=== PATIENT | female | born 1995 | race Caucasian/White ===

== ENCOUNTER → 2017-11-28 | Outpatient (REF) ==
[~2017-11-28] MED LIST: BCP
[2017-11-28 10:57] LABS: LDL CHOLESTEROL 99 mg/dl
== END ==
DX: Z02.9 Encounter for administrative examinations, unspecified (principal)

== ENCOUNTER → 2018-10-13 | Outpatient (CLI) | payer OTHER ==
[~2018-10-13] MED LIST changes: +PREN-127 PO
[2018-10-13 09:40] LABS: PLATELET COUNT, AUTOMATED 179 K/uL (150-450)
== END ==
LOC: LAB 08:19
PROVIDERS: ATTEND Student in an Organized Health Care Education/Training Program
DX: Z34.90 Encounter for supervision of normal pregnancy, unspecified, unspecified trimester (principal); R82.79 Other abnormal findings on microbiological examination of urine
CPT/HCPCS: 36415; 81001; 85025; 86592; 86703; 86762; 86850; 86900; 86901; 87088; 87340

== ENCOUNTER → 2018-10-31 | Outpatient (CLI) | payer OTHER | LOC: LAB 08:09 | PROVIDERS: ATTEND Student in an Organized Health Care Education/Training Program | DX: Z11.3 Encounter for screening for infections with a predominantly sexual mode of transmission (principal); Z34.01 Encounter for supervision of normal first pregnancy, first trimester | CPT/HCPCS: 87491; 87591 ==

== ENCOUNTER 2018-12-20 03:52 | Observation (INO) | payer OTHER ==
[~2018-12-20] VITALS: Ht 170.2 cm; Wt 88.0 kg
[~2018-12-20 03:52] MED LIST changes: +ONDA-2 PO
--- NOTE | 2018-12-20 03:55 | ER Report ---
History and Physical Time Seen By MD: 03:54 (PANKAJ PABLO DO) HPI/ROS CHIEF COMPLAINT: Vomiting HISTORY OF PRESENT ILLNESS: 23-year-old female at 16 weeks, followed by Dr. Holt. Patient was seen 2 weeks ago. She's been vomiting for 2 days. Patient's been trying Zofran without effect. She notes no vaginal bleeding or s potting. Patient denies fever, chills or concurrent illness symptoms. REVIEW OF SYSTEMS: Respiratory: No cough, no dyspnea. Cardiovascular: No chest pain, no palpitations. Gastrointestinal: As above Musculoskeletal: No back pain. (PANKAJ PABLO DO) Allergies: Coded Allergies: No Known Drug Allergies (Unverified , 12/20/18) verified 12/28/17 Home Meds Active Scripts Ondansetron 4 Mg Odt (ONDANSETRON 4 MG ODT) 4 Mg Tab.rapdis, 4 MG PO Q6H PRN for NAUSEA/VOMITING, #15 TAB Prov:PANKAJ PABLO DO 12/20/18 Ondansetron Hcl (ONDANSETRON HCL) 4 Mg Tablet, 4 MG PO Q4H PRN for NAUSEA, #30 TAB 2 Refills Prov:ISELA HOLT DO 12/18/18 Reported Medications Vits W-Ca,Fe,Fa(<1MG) ( VITAMINS) 1 Each Tablet, 1 EACH PO DAILY, TAB 09/18/18 Past Medical/Surgical History Past Medical History Neurologic: Reports hx of: migraine (last was > 5 years ago) Past Surgical History HEENT: Reports hx of: dental surgery (WISDOM TEETH) tonsillectomy (1999) (PANKAJ PABLO DO) Reviewed Nurses Notes: Yes Old Medical Records Reviewed: Yes (PANKAJ PABLO DO) Hx Smoking: No Smoking Status: Never Smoker Hx Substance Use Disorder: No Hx Alcohol Use: No (PANKAJ PABLO DO) Constitutional Vital Sign - Last 24 Hours 12/20/18 12/20/18 12/20/18 12/20/18 03:59 04:00 04:22 04:30 Temp 98.5 Pulse 101 81 Resp 14 B/P (MAP) 131/79 (96) 131/79 106/69 (81) Pulse Ox 93 94 O2 Delivery Room Air 12/20/18 12/20/18 12/20/18 12/20/18 04:37 04:52 04:57 05:00 Pulse 81 80 78 B/P (MAP) 96/70 (79) Pulse Ox 96 95 12/20/18 12/20/18 12/20/18 12/20/18 05:12 05:27 05:30 05:42 Pulse 96 87 95 B/P (MAP) 108/61 (77) Pulse Ox 96 94 96 12/20/18 12/20/18 12/20/18 12/20/18 05:47 06:00 06:02 06:17 Pulse 110 84 75 B/P (MAP) 109/61 (77) Pulse Ox 94 98 12/20/18 12/20/18 12/20/18 12/20/18 06:30 06:32 06:47 06:52 Pulse 93 103 95 B/P (MAP) 114/71 (85) Pulse Ox 95 95 91 12/20/18 12/20/18 12/20/18 12/20/18 07:00 07:22 07:30 07:40 Pulse 84 78 B/P (MAP) 121/72 (88) 109/71 (84) Pulse Ox 97 97 12/20/18 12/20/18 12/20/18 07:45 08:00 08:15 Pulse 87 86 B/P (MAP) 114/69 (84) Pulse Ox 97 Intake and Output 12/19/18 12/19/18 12/20/18 15:00 23:00 07:00 Intake Total 2000 ml Balance 2000 ml (YASH MANCILLA MD) Physical Exam General Appearance: The patient is alert, has no immediate need for airway protection and no current signs of toxicity. Vital signs stable, afebrile, pulse ox normal, skin warm, dry, pink Eyes: Pupils equal and round no injection. Respiratory: Chest is non tender, lungs are clear to auscultation. Cardiac: regular rate and rhythm Gastrointestinal: Abdomen is soft and non tender, no masses, bowel sounds normal. Musculoskeletal: Neck: Neck is supple and non tender. Extremities have full range of motion and are non tender. Skin: No rashes or lesions. DIFFERENTIAL DIAGNOSIS: After history and physical exam differential diagnosis was considered for hyperemesis gravidarum, vomiting, food poisoning, gastroenteritis, viral syndrome (PANKAJ PABLO DO) Medical Decision Making Data Points Result Diagram: 12/20/18 0413 12/20/18 0413 Laboratory Hematology Test 12/20/18 04:00 12/20/18 04:13 Urine Color Yellow Urine Clarity Slightly-cloudy Urine pH 5.0 pH (4.8-9.5) Urine Specific [place] 1.030 Urine Protein Negative mg/dL (NEGATIVE) Urine Glucose (UA) Negative mg/dL (NEGATIVE) Urine Ketones Trace mg/dL (NEGATIVE) Urine Blood Negative (NEGATIVE) Urine Nitrite Negative (NEGATIVE) Urine Bilirubin Negative (NEGATIVE) Urine Urobilinogen 2.0 mg/dL (0.2-1.9) Urine Leukocyte Esterase Negative (NEGATIVE) Urine RBC 1 /HPF (0-2/HPF) Urine WBC 5 /HPF (0-5/HPF) Urine Squamous Epithelial Cells Many /LPF (</=FEW) Urine Transitional Epithelial Cells Moderate /LPF (NONE-FEW) Urine Bacteria Few /HPF (NONE-FEW) Urine Hyaline Casts Few /LPF (NONE-FEW) Urine Mucus Few /HPF (NONE-FEW) Urine HCG, Qualitative Positive (NEGATIVE) Red Blood Count 4.63 M/uL (4.17-5.56) Mean Corpuscular Volume 85.6 fL (80.0-96.0) Mean Corpuscular Hemoglobin 29.6 pg (26.0-33.0) Mean Corpuscular Hemoglobin Concent 34.6 g/dL (32.0-36.0) Red Cell Distribution Width 12.7 % (11.5-14.5) Mean Platelet Volume 8.4 fL (7.2-11.1) Neutrophils (%) (Auto) 80.3 % (39.4-72.5) Lymphocytes (%) (Auto) 10.7 % (17.6-49.6) Monocytes (%) (Auto) 8.1 % (4.1-12.4) Eosinophils (%) (Auto) 0.4 % (0.4-6.7) Basophils (%) (Auto) 0.5 % (0.3-1.4) Nucleated RBC Relative Count (auto) 0.1 /100WBC Neutrophils # (Auto) 7.0 K/uL (2.0-7.4) Lymphocytes # (Auto) 0.9 K/uL (1.3-3.6) Monocytes # (Auto) 0.7 K/uL (0.3-1.0) Eosinophils # (Auto) 0.0 K/uL (0.0-0.5) Basophils # (Auto) 0.0 K/uL (0.0-0.1) Nucleated RBC Absolute Count (auto) 0.01 K/uL Sodium Level 135 mmol/L (137-145) Potassium Level 3.3 mmol/L (3.5-5.0) Chloride Level 104 mmol/L (98-107) Carbon Dioxide Level 24 mmol/L (22-31) Blood Urea Nitrogen 8 mg/dl (7-18) Creatinine 0.60 mg/dl (0.52-1.04) Glomerular Filtration Rate Calc > 60.0 Random Glucose 101 mg/dl (75-110) Calcium Level 8.9 mg/dl (8.4-10.2) Total Bilirubin 0.2 mg/dl (0.2-1.3) Aspartate Amino Transf (AST/SGOT) 14 U/L (0-35) Alanine Aminotransferase (ALT/SGPT) 15 U/L (0-56) Alkaline Phosphatase 41 U/L (0-126) Total Protein 6.7 g/dl (6.3-8.2) Albumin 3.5 g/dl (3.5-5.0) Amylase Level 78 U/L (0-110) Lipase 139 U/L (23-300) Chemistry Test 12/20/18 04:00 12/20/18 04:13 Urine Color Yellow Urine Clarity Slightly-cloudy Urine pH 5.0 pH (4.8-9.5) Urine Specific [place] 1.030 Urine Protein Negative mg/dL (NEGATIVE) Urine Glucose (UA) Negative mg/dL (NEGATIVE) Urine Ketones Trace mg/dL (NEGATIVE) Urine Blood Negative (NEGATIVE) Urine Nitrite Negative (NEGATIVE) Urine Bilirubin Negative (NEGATIVE) Urine Urobilinogen 2.0 mg/dL (0.2-1.9) Urine Leukocyte Esterase Negative (NEGATIVE) Urine RBC 1 /HPF (0-2/HPF) Urine WBC 5 /HPF (0-5/HPF) Urine Squamous Epithelial Cells Many /LPF (</=FEW) Urine Transitional Epithelial Cells Moderate /LPF (NONE-FEW) Urine Bacteria Few /HPF (NONE-FEW) Urine Hyaline Casts Few /LPF (NONE-FEW) Urine Mucus Few /HPF (NONE-FEW) Urine HCG, Qualitative Positive (NEGATIVE) White Blood Count 8.8 k/uL (4.5-11.0) Red Blood Count 4.63 M/uL (4.17-5.56) Hemoglobin 13.7 g/dL (12.0-16.0) Hematocrit 39.6 % (34.0-47.0) Mean Corpuscular Volume 85.6 fL (80.0-96.0) Mean Corpuscular Hemoglobin 29.6 pg (26.0-33.0) Mean Corpuscular Hemoglobin Concent 34.6 g/dL (32.0-36.0) Red Cell Distribution Width 12.7 % (11.5-14.5) Platelet Count 181 K/uL (150-450) Mean Platelet Volume 8.4 fL (7.2-11.1) Neutrophils (%) (Auto) 80.3 % (39.4-72.5) Lymphocytes (%) (Auto) 10.7 % (17.6-49.6) Monocytes (%) (Auto) 8.1 % (4.1-12.4) Eosinophils (%) (Auto) 0.4 % (0.4-6.7) Basophils (%) (Auto) 0.5 % (0.3-1.4) Nucleated RBC Relative Count (auto) 0.1 /100WBC Neutrophils # (Auto) 7.0 K/uL (2.0-7.4) Lymphocytes # (Auto) 0.9 K/uL (1.3-3.6) Monocytes # (Auto) 0.7 K/uL (0.3-1.0) Eosinophils # (Auto) 0.0 K/uL (0.0-0.5) Basophils # (Auto) 0.0 K/uL (0.0-0.1) Nucleated RBC Absolute Count (auto) 0.01 K/uL Glomerular Filtration Rate Calc > 60.0 Calcium Level 8.9 mg/dl (8.4-10.2) Total Bilirubin 0.2 mg/dl (0.2-1.3) Aspartate Amino Transf (AST/SGOT) 14 U/L (0-35) Alanine Aminotransferase (ALT/SGPT) 15 U/L (0-56) Alkaline Phosphatase 41 U/L (0-126) Total Protein 6.7 g/dl (6.3-8.2) Albumin 3.5 g/dl (3.5-5.0) Amylase Level 78 U/L (0-110) Lipase 139 U/L (23-300) Urinalysis Test 12/20/18 04:00 Urine Color Yellow Urine Clarity Slightly-cloudy Urine pH 5.0 pH (4.8-9.5) Urine Specific [place] 1.030 Urine Protein Negative mg/dL (NEGATIVE) Urine Glucose (UA) Negative mg/dL (NEGATIVE) Urine Ketones Trace mg/dL (NEGATIVE) Urine Blood Negative (NEGATIVE) Urine Nitrite Negative (NEGATIVE) Urine Bilirubin Negative (NEGATIVE) Urine Urobilinogen 2.0 mg/dL (0.2-1.9) Urine Leukocyte Esterase Negative (NEGATIVE) Urine RBC 1 /HPF (0-2/HPF) Urine WBC 5 /HPF (0-5/HPF) Urine Squamous Epithelial Cells Many /LPF (</=FEW) Urine Transitional Epithelial Cells Moderate /LPF (NONE-FEW) Urine Bacteria Few /HPF (NONE-FEW) Urine Hyaline Casts Few /LPF (NONE-FEW) Urine Mucus Few /HPF (NONE-FEW) Urine HCG, Qualitative Positive (NEGATIVE) (YASH MANCILLA MD) ED Course/Re-evaluation Clinical Indication for ER IV: Hydration, IV Access ED Course Patient was admitted to an examination room. H&P was done. The differential d iagnosis was considered. Patient with vomiting every days. Most of her . She's got Zofran at home which is not controlling the vomiting. She's been vomiting severely for 2 days, unable to keep anything down. She states she's lost 9 pounds approximately. She is treated with aggressive IV fluid hydration with 2 L of lactated Ringer's., Zofran 8 mg, Phenergan 37.5 mg and continues to have emesis. She is given additional dose of Reglan 10 mg and a liter of D5 normal saline here in the emergency department. Care is turned over to Dr. Mancilla at shift change. Decision to Disposition Date: December 20, 2018 Decision to Disposition Time: 05:11 (PANKAJ PABLO DO) ED Course Medical decision-making 23-year-old female hyperemesis gravidarum [place] 3 L of fluid multi-antiemetics and still having some active vomiting will admit today for 23 hour observation for hyperemesis Decision to Disposition Date: December 20, 2018 Decision to Disposition Time: 09:12 (YASH MANCILLA MD) Depart Departure Latest Vital Signs Vital Signs Date Time Temp Pulse Resp B/P (MAP) Pulse Ox O2 Delivery O2 Flow Rate FiO2 12/20/18 08:15 86 12/20/18 08:00 114/69 (84) 12/20/18 07:45 97 12/20/18 04:00 98.5 14 Room Air (YASH MANCILLA MD) Impression: Primary Impression: Hyperemesis gravidarum Condition: Improved Disposition: Admitted from ER Referrals: ISELA HOLT DO (PCP) New Scripts Ondansetron 4 Mg Odt (ONDANSETRON 4 MG ODT) 4 Mg Tab.rapdis 4 MG PO Q6H PRN for NAUSEA/VOMITING, #15 TAB Prov: PANKAJ PABLO DO 12/20/18 Patient Instructions: Hyperemesis Gravidarum (ED) Additional Instructions: Follow-up with your PRODUCT ENGINEER as needed PANKAJ PABLO DO December 20, 2018 03:55 YASH MANCILLA MD December 20, 2018 09:13
[2018-12-20] MEDS ORDERED: LR(*) 1000 ML BAG 1,000 ML IV ONE (04:02)
[2018-12-20] MEDS ORDERED: PROMETHAZINE 25 MG/ML 1 ML AMP IVP ONE ×2 (04:05→05:20)
[2018-12-20] MEDS ORDERED: ONDANSETRON 4 MG/2 ML VIAL IVP ONE (04:05)
[2018-12-20 04:23] LABS: PLATELET COUNT, AUTOMATED 181 K/uL (150-450)
[2018-12-20] MEDS ORDERED: ONDA4TAB9 PO (05:12)
[2018-12-20] MEDS ORDERED: ONDANSETRON 4 MG ODT TH SL ONE (05:15)
[2018-12-20] MEDS ORDERED: LR(*) 1000 ML BAG 1,000 ML IV PRN (05:20)
[2018-12-20] MEDS ORDERED: D5NS(*) 1000 ML BAG 1,000 ML IV PRN (06:35)
[2018-12-20] MEDS ORDERED: METOCLOPRAMIDE 10 MG/2 ML SDV IVP ONE (06:45)
[2018-12-20 09:29] VITALS: BP 104/70
[2018-12-20 09:41] VITALS: BMI 30.4
[2018-12-20] MEDS: NS(*) 0.9% 1000 ML BAG 1,000 ML IV PRN ×2 (09:57→17:45)
--- NOTE | 2018-12-20 09:57 | History & Physical ---
History of Present Illness Age of Patient: 23 : 1 Para or TPAL: 0 EDC per LMP: Jun 05, 2019 Estimated Gestational Age: 16 Chief Complaint This is a at 16 weeks who presents to the emergency room this morning at 3 AM with hyperemesis. She has been having nausea and vomiting since 9 weeks of and 2 weeks ago started taking Zofran 4. Zofran has helped significantly but this morning she has not been able to keep down her Zofran. She has denied fever and chills, but currently is feeling chills. She denies headache, vision changes abdominal pain. She denies leaking of fluid or vaginal bleeding and abdominal cramping. 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 He reports several bouts of watery diarrhea, with the last bout having bright red blood in her stool. As far as she is aware she does not hemorrhoids. She has been urinating well since received 3 L of IV fluids and ER. Currently she feels slightly nauseated, but much better than she did. Her is at the bedside and he is healthy without concerns. History Patient's Blood Type: B Positive Rubella Status: Immune Group B Strep Screen: Unknown Allergies: Coded Allergies: No Known Drug Allergies (Unverified , 12/20/18) verified 12/28/17 Social History: Denies alcohol, smoking, illicit drugs including marijuana. and monogamous Family History: FH: HTN (hypertension) MOTHER paternal grandma FH: heart disease paternal grandma maternal grandpa FH: hypothyroidism MOTHER Med Rec Home Meds Active Scripts Ondansetron 4 Mg Odt (ONDANSETRON 4 MG ODT) 4 Mg Tab.rapdis, 4 MG PO Q6H PRN for NAUSEA/VOMITING, #15 TAB Prov:PANKAJ PABLO DO 12/20/18 Ondansetron Hcl (ONDANSETRON HCL) 4 Mg Tablet, 4 MG PO Q4H PRN for NAUSEA, #30 TAB 2 Refills Prov:ISELA ODELL DO 12/18/18 Reported Medications Vits W-Ca,Fe,Fa(<1MG) ( VITAMINS) 1 Each Tablet, 1 EACH PO DAILY, TAB 09/18/18 Review of Systems Constitutional: Chills; No Fever Eyes: No Vision Change Cardiovascular: No Chest Pain Respiratory: No Shortness of Breath Gastrointestinal: Nausea, Vomiting, Diarrhea; No Abdominal Pain Genitourinary: No Dysuria Musculoskeletal: No Pain Psychiatric: No Depression, No Anxiety Exam General Exam Vital Signs Vital Signs Date Time Temp Pulse Resp B/P (MAP) Pulse Ox O2 Delivery O2 Flow Rate FiO2 12/20/18 12:20 99.2 12/20/18 10:51 85 16 105/59 (74) 93 Room Air General Apperance: Alert/Awake/No Acute Distress Neuro: No Gross deficits Eyes: Normal Extraocular Movement & Vison, PERRLA ENT: Normal Cardiovascular: Regular Rate and Rhythm; No Edema Respiratory: No Respiratory Distress, Clear to Auscultation Abdomen: Gravid - Non-Tender, RUQ Non-Tender, Active Bowel Sounds : Normal Musculoskeletal: No Weakness/Pain Extremities: No Cyanosis,Clubbing or Edema; No Tender Calves, No Edema Integumentary: Skin Intact without Lesions or Rash Psychological: Alert & Oriented X3, Appropriate Mood & Affect Medical Decision Making Data Points Result Diagram: 12/20/18 0413 12/20/18 0413 VTE Prophylasis: Adult Deep Vein Thrombosis/Pulmonary: No Pharmacological Contraindicati: Pt at Low Risk for VTE Mechanical Contraindications: Pt at Low Risk for VTE Assessment and Plan Problems: (1) Nausea and vomiting during prior to 22 weeks gestation Status: Acute Assessment & Plan: -Plan to admit for 23 hour observation for IV fluids and anti-emetics. -NS@125cc/hr -Doppler FHT QD -PRN antiemetics and scheduled vit b6/Unisom if pt tolerates PO -Clear liquids and advance as tolerate -Reevaluate labs tomorrow morning and DC to home of tolerating PO fluids NICOLE MENDOZA CNM December 20, 2018 09:56
[2018-12-20] MEDS ORDERED: DOXYLAMINE SUCCINATE 25 MG TAB PO PRN (10:00)
[2018-12-20] MEDS ORDERED: PROMETHAZINE 25 MG/ML 1 ML AMP IVP PRN (10:00)
[2018-12-20] MEDS ORDERED: diphenhydrAMINE 50 MG/ML VIAL IVP PRN ×2 (10:00→12:45)
[2018-12-20 10:26] VITALS: Ht 170.2 cm; Wt 88.0 kg
[2018-12-20 10:51] VITALS: BP 105/59
[2018-12-20 17:18] VITALS: BP 91/53
[2018-12-20 19:37] VITALS: BP 99/56
[2018-12-20 23:44] VITALS: BP 107/51
[2018-12-21 05:00] VITALS: BP 90/51
[2018-12-21 07:45] VITALS: BP 103/60
--- NOTE | 2018-12-21 08:05 | OB/GYN Progress Note ---
OB Subjective Progress Notes Subjective Patient is feeling much better today. She has not had any vomiting overnight. Her last antiemetics were yesterday morning at 10 AM. She had a bowel movement this morning that was less diarrhea than yesterday. She feels ready to go home. OB Objective Physical Exam Vital Signs Date Time Temp Pulse Resp B/P (MAP) Pulse Ox O2 Delivery O2 Flow Rate FiO2 12/21/18 07:45 98.1 81 16 103/60 (74) 90 Room Air Intake and Output 12/21/18 07:00 Intake Total 1950 ml Output Total 2200 ml Balance -250 ml Intake IV Total 1950 ml Output Urine Total 1900 ml Stool Total 300 ml # Voids 1 # Bowel Movements 1 General Appearance: Alert/Awake/No Acute Distress Neurological: No Gross deficits Eyes: Normal Extraocular Movement & Vison, PERRLA Cardiovascular: Normal Rhythm & Peripheral Pulses, Regular Rate and Rhythm Respiratory: No Respiratory Distress, Clear to Auscultation Abdomen: Soft, Non-Tender, Non-Distended Extremities: No Cyanosis,Clubbing or Edema; No Tender Calves, No Edema Integumentary: Skin Intact without Lesions or Rash Psychological: Alert & Oriented X3, Appropriate Mood & Affect Result Diagram: 12/20/18 0413 12/20/18 0413 Assessment and Plan Problems: (1) Nausea and vomiting during prior to 22 weeks gestation Status: Acute Assessment & Plan: 23-year-old at 16 weeks presented yesterday to the emergency department for nausea, vomiting and diarrhea. She was severely dehydrated and unable to keep anything down. She was admitted and given IV fluids and now feels significantly better. Her diarrhea has improved. I suspect she had a gastroenteritis on top of her usual nausea and vomiting in . She is ready to go home and will follow up in 4 days as scheduled for her routine OB visit. JOSEPH MITCHELL MD December 21, 2018 08:05
--- NOTE | 2018-12-21 08:08 | OB/GYN Discharge Summary ---
Discharge Summary Reason for Hosp/Final Diag: (1) Nausea and vomiting during prior to 22 weeks gestation Status: Acute Hospital Course & Plan: 23-year-old at 16 weeks presented yesterday to the emergency department for nausea, vomiting and diarrhea. She was severely dehydrated and unable to keep anything down. She was admitted and given IV fluids and now feels significantly better. Her diarrhea has improved. I suspect she had a gastroenteritis on top of her usual nausea and vomiting in . She is ready to go home and will follow up in 4 days as scheduled for her routine OB visit. Lates Vital Signs Vital Signs Date Time Temp Pulse Resp B/P (MAP) Pulse Ox O2 Delivery O2 Flow Rate FiO2 12/21/18 07:45 98.1 81 16 103/60 (74) 90 Room Air Weight (Pounds): 194 Result Diagram: 12/20/1841212/20/18412 Condition: Improved Discharge: Home, Self Usp Meds Active Scripts Ondansetron 4 Mg Odt (ONDANSETRON 4 MG ODT) 4 Mg Tab.rapdis, 4 MG PO Q6H PRN for NAUSEA/VOMITING, #15 TAB Prov:PANKAJ PABLO DO 12/20/18 Ondansetron Hcl (ONDANSETRON HCL) 4 Mg Tablet, 4 MG PO Q4H PRN for NAUSEA, #30 TAB 2 Refills Prov:ISELA ODELL DO 12/18/18 Reported Medications Vits W-Ca,Fe,Fa(<1MG) ( VITAMINS) 1 Each Tablet, 1 EACH PO DAILY, TAB 09/18/18 Follow up Referrals: [employer] [facility] MANAGER - 12/25/18 @ [facility] – [place] [place] with ISELA ODELL DO Discharge Diet: As Tolerates Discharge Activity: As Tolerates JOSEPH MITCHELL MD December 21, 2018 08:08
[2018-12-21] MEDS ORDERED: PYRIDOXINE HCL 50 MG TAB PO SCH (21:00)
== END 2018-12-21 08:06 | disposition home or self-care (01) ==
LOC: ER 04:32 → PED 09:13 → INTOOBSV 09:13
PROVIDERS: ADMIT Obstetrics & Gynecology; ATTEND Obstetrics & Gynecology
DX: O21.0 Mild hyperemesis gravidarum (principal); Z3A.16 16 weeks gestation of pregnancy
CPT/HCPCS: 81001; 81025; 82150; 83690; 85025; 96361; 96374; 96375; 96376; 99284; G0378; J2405; J2550; J2765; J7030; J7042; J7120; 82040; 82247; 82310; 82374; 82435; 82565; 82947; 84075; 84132; 84155; 84295; 84450; 84460; 84520

== ENCOUNTER → 2018-12-25 | Outpatient (CLI) | payer OTHER ==
[2018-12-20 10:26] VITALS: BMI 30.4
[~2018-12-25] MED LIST changes: +ONDA4TAB9 PO
== END ==
LOC: LAB 08:21
PROVIDERS: ATTEND Student in an Organized Health Care Education/Training Program
DX: Z36.89 Encounter for other specified antenatal screening (principal)
CPT/HCPCS: 36415; 81511

== ENCOUNTER → 2019-01-22 | Outpatient (CLI) | payer OTHER ==
[2018-12-20 10:26] VITALS: BMI 30.4
--- NOTE | 2019-01-22 14:43 | RADIOLOGY IMAGING REPORT ---
FACILITY: [facility] PATIENT NAME: Joseph Rendon : 1995 MR: [id number] V: [id number] EXAM DATE: ORDERING PHYSICIAN: ISELA ODELL TECHNOLOGIST: Location: [facility] - [place] Patient: Joseph Rendon : 1995 Visit/Account:[id number] Date of Sevice: 01/22/2019 EXAMINATION: Ultrasound transabdominal OB > 14 weeks with anatomic evaluation HISTORY: 20 week anatomical survey COMPARISON: None. TECHNIQUE: Transabdominal imaging was performed for assessment of the fetus and maternal pelvic structures. T ransvaginal imaging was not performed. FINDINGS: Placenta: Posterior without previa. Uterus: Gravid, otherwise normal Cervix: Long and closed. Maternal Ovaries: Not visualized. Maternal and other adnexa findings: Not evaluated Intrauterine gestations: One. presentation: Cephalic heart rate: Normal and regular at 155 bpm Amniotic fluid index: 14.33 cm Largest amniotic fluid pocket: 4.17 cm Gestational Parameters: BPD: 4.66 cm 20 weeks/ one days, 19% HC: 17.8 cm 20 weeks/ two days, 17% AC: 14.5 cm 19 weeks/ six days, 14% FL: 3.07 cm 19 weeks/ four days, 7% Average ultrasound age (AUA): 20 weeks/zero days, RADHA 06/11/2019 Estimated gestational age by LMP: 20 weeks/six days, RADHA 06/05/2019 Estimated weight (EFW): 310 grams +/- 46 grams EFW for RAHDA: Six percentile Anatomic Survey: Intracranial structures, 4-chamber heart, stomach, kidneys, urinary bladder, spine, 3-vessel cord and cord insertion are unremarkable. Two upper and two lower extremities visualized. Cardiac ventricula r outflow tracts, palate and lips are unremarkable in appearance. IMPRESSION: Single viable fetus in cephalic presentation with an estimated gestational age by measur ements of 20 weeks and zero days. Estimated gestational age by LMP is 20 weeks and six days. Estimated weight is 310 g equivalent to the 6th percentile Report Dictated By: Ana Barone MD at 01/22/2019 2:23 PM Report E-Signed By: Ana Barone MD at 01/22/2019 2:38 PM WSN:[id number]
== END ==
LOC: RAD 07:54
PROVIDERS: ATTEND Student in an Organized Health Care Education/Training Program
DX: Z02.9 Encounter for administrative examinations, unspecified (principal)

== ENCOUNTER → 2019-03-19 | Outpatient (CLI) | payer OTHER ==
[2018-12-20 10:26] VITALS: BMI 30.4
[~2019-03-19] MED LIST changes: +DIPH0.5S2 IM
[2019-03-19 10:37] LABS: PLATELET COUNT, AUTOMATED 87 K/uL (150-450)
== END ==
LOC: LAB 08:56
PROVIDERS: ATTEND Obstetrics & Gynecology
DX: Z34.92 Encounter for supervision of normal pregnancy, unspecified, second trimester (principal)
CPT/HCPCS: 36415; 82950; 85025

== ENCOUNTER → 2019-03-26 | Outpatient (CLI) | payer OTHER ==
[2018-12-20 10:26] VITALS: BMI 30.4
[2019-03-26 08:52] LABS: PLATELET COUNT, AUTOMATED 177 K/uL (150-450)
== END ==
LOC: LAB 08:34
PROVIDERS: ATTEND Student in an Organized Health Care Education/Training Program
DX: D69.6 Thrombocytopenia, unspecified (principal)
CPT/HCPCS: 36415; 85025